=== PATIENT | female | born 1980 | race Caucasian/White ===

== ENCOUNTER 2022-04-01 19:57 | Emergency (ER) | payer BC ==
[2022-04-01] MEDS ORDERED: Sodium Chloride 0.9% 10 ML Syringe FLUSH PRN (21:03)
[2022-04-01] MEDS ORDERED: Sodium Chloride 0.9% 1,000 ML IV SCH (21:45)
[2022-04-01] MEDS ORDERED: Iopamidol 612 MG/ML 100 ML Bottle ONE (22:56)
== END 2022-04-01 23:50 | disposition home or self-care (01) ==
LOC: JD.ED 19:57
DX: R10.13 Epigastric pain (principal); K21.9 Gastro-esophageal reflux disease without esophagitis; Z79.899 Other long term (current) drug therapy
CPT/HCPCS: 74177; 74177-26; 81001; 81025; 99284; J3490; J7030; Q9967